=== PATIENT | female | born 1990 | race Two or more races ===

== ENCOUNTER 2025-06-04 10:21 | Outpatient (CLI) | payer MEDICAID ==
[~2025-06-04 10:21] MED LIST: PREN-96 PO
[2025-06-04 11:06] LABS: Hematocrit 33.3 % (36.0-46.0); Hemoglobin 11.1 g/dL (12.2-16.2); Mean Corpuscular Hemoglobin 29.2 pg (28.0-32.0); Mean Corpuscular Volume 87.4 fL (80.0-100.0); Nucleated Red Blood Cells % 0.0 %
[2025-06-04 11:35] LABS: Alanine Aminotransferase 27 U/L (7-40); Albumin 3.8 g/dL (3.2-4.8); Anion Gap 11 (5-15); BUN/Creatinine Ratio 12.5 (10.0-20.0); Calcium 8.7 mg/dL (8.7-10.4); Carbon Dioxide 23 mmol/L (20-31); Chloride 104 mmol/L (98-107); Potassium 3.5 mmol/L (3.5-5.1); Sodium 138 mmol/L (136-145); Thyroid Stimulating Hormone 0.96 uIU/mL (0.55-4.78); Total Protein 6.8 g/dL (5.7-8.2)
[2025-06-04 11:37] LABS: Blood Urea Nitrogen 6 mg/dL (9-23); Glucose 151 mg/dL (74-106)
[2025-06-04 11:38] LABS: Alkaline Phosphatase 45 U/L (46-116); Bilirubin, Total 0.3 mg/dL (0.2-1.0)
[2025-06-04 11:45] LABS: Beta HCG, Quantitative 6833.1 mIU/mL (1.5-4.2)
[2025-06-04 12:14] LABS: Amphetamine Screen, Urine Neg (NEGATIVE); Barbiturate Scree,Urine Neg (NEGATIVE); Benzodiazephine Screen, Urine Neg (NEGATIVE); Cannabinoid Screen, Urine Neg (NEGATIVE); Cocaine Screen, Urine Neg (NEGATIVE); Opiate Scree,Urine Neg (NEGATIVE); Phencyclidine Screen, Urine Neg (NEGATIVE)
[2025-06-05 15:07] LABS: Chlamydia Trachomatis, NAA Negative (Negative); Neisseria gonorrhoeae, NAA Negative (Negative)
== END 2025-06-04 17:00 | disposition home or self-care (01) ==
LOC: LAB 10:21
PROVIDERS: ATTEND Obstetrics & Gynecology
DX: O26.899 Other specified pregnancy related conditions, unspecified trimester (principal); E78.2 Mixed hyperlipidemia; N93.0 Postcoital and contact bleeding; Z11.2 Encounter for screening for other bacterial diseases; Z11.3 Encounter for screening for infections with a predominantly sexual mode of transmission; Z3A.00 Weeks of gestation of pregnancy not specified
CPT/HCPCS: 36415; 80053; 80307; 83036; 84439; 84443; 84702; 85025; 86703; 86762; 86780; 86787; 86850; 86900; 86901; 87340; 87902

== ENCOUNTER 2025-06-26 20:40 | Observation (INO) | payer MEDICAID ==
[~2025-06-26] VITALS: Ht 154.9 cm; Wt 99.8 kg
--- NOTE | 2025-06-26 22:37 | DVH ---
OB ULTRASOUND <14 WEEKS: HISTORY: Decreased movement TECHNIQUE: Multiple real-time grayscale sonographic images of the pelvis with duplex Doppler color f low, spectral and M-mode analysis. TRANSDUCERS: C1-6 COMPARISON: None FINDINGS: Single live intrauterine with a heart rate of 145 beats per minute. Good moveme nt is appreciated. Dating was not performed. Breech presentation. Anterior placenta without previa or abruption. IMPRESSION: 1. Single live intrauterine with a heart rate of 145 beats per minute. Good mov ement is appreciated. 2. Breech presentation.
--- NOTE | 2025-06-26 23:20 | DVHDS2 ---
Physician Discharge Progress N Final Diagnosis: IUP at 28w Reactive NST Operations or Procedures: Operations or Procedures Ms. Page, a 34yo G3, 1999 with EDC of 09/13/2025, EGA 28w 5d presents to place, reports she has not felt baby move x >2hours. She reports no cramping or contraction,LOF, VB, PETERSON, vision changes or epigastric pain. O: A&O x3 Appears uncomfortable No CVA tenderness Abdomen palpate soft A: IUP at 28w d Decreased FM P: EFM - NST Limited OB US Re-assessment @ 22:20 FHR baseline 135bpm mod variability, acceleration present, no deceleration Tocometer: no UCs noted, none palpated Pt reports she has been feeling FM since arrival on unit US report Anterior placenta without previa or abruption. IMPRESSION: 1. Single live intrauterine with a heart rate of 145 beats per minute. Good movement is appreciated. 2. Breech presentation. Per patient fetus was cephalic yesterday during her visit Patient now reports she is feeling FM A: IUP at 28w 5d Reactive NST P: Discharge home Keep appointment with OB provider as scheduled in 2 weeks; seek care sooner if needed Educated on the need for adequate hydration - advised to increased water intake 3rd trimester emergency S&S FMC, labor & pre-eclampsia precautions reviewed with pt; advised to seek health care if any occurs Other Interventions Other Interventions Oral Hydration Condition on Discharge: Stable Disposition: Home Discharge Instructions: Diet: Regular Diet comment: Routine regular diet rich in fiber, protein, iron and vitamin C with adequate fluid intake. Activity: No Restrictions, As Tolerated Activity comment: Unrestricted. As tolerated. Balance activities with rest periods No heavy lifting, pushing or straining. Follow Up/Referral: Keep scheduled appointment Medications: None Follow Up Care: Discharge Statement: 3rd trimester emergency S&S FMC, PTL & pre-eclampsia precautions reviewed with pt; advised to seek health care if any symptom including but not limited to any of the above. "Patient was advised to return to the ER or call 911 if any headaches, dizziness, shortness of breath, chest pain, abdominal pain, bleeding, fevers, or worsening of medical condition. Patient was counseled about treatment plan, medications, possible side effects, patientverbalized understanding. All questions were answered to the best of my ability. This discharge took greater then 30 minutes in planning, reviewing documentation, counseling the patient, and discussing with other team members." Visit Coding OBGYN Date of Service: Jun 26, 2025 Billing Provider: MICHAEL NICHOLSON CNM CALL CENTER DISPATCHER Common Visit Codes: 37926-MXF/OBS SAME DATE (HIGH) CALL CENTER DISPATCHER Procedure Codes: 99404-07- NON-STRESS TEST MICHAEL NICHOLSON CNM Jun 26, 2025 23:20
== END 2025-06-26 22:34 | disposition home or self-care (01) ==
LOC: LDRP 20:40
PROVIDERS: ADMIT Obstetrics & Gynecology; ATTEND Obstetrics & Gynecology
DX: O36.8130 Decreased fetal movements, third trimester, not applicable or unspecified (principal); O32.1XX0 Maternal care for breech presentation, not applicable or unspecified; Z3A.28 28 weeks gestation of pregnancy; Z98.890 Other specified postprocedural states
CPT/HCPCS: 59025; 76815; 81002; 94760; G0378

== ENCOUNTER 2025-07-06 02:57 | Observation (INO) | payer MEDICAID ==
[~2025-07-06] VITALS: Ht 154.9 cm; Wt 102.1 kg
[2025-07-06 05:02] LABS: Fern Testing Negative
[2025-07-06 05:05] LABS: Vaginal Trichomonas Not Present
[2025-07-06 05:06] LABS: Vaginal Bacteria Moderate; Vaginal Clue Cells None Seen; Vaginal Epithelial Cells Rare
--- NOTE | 2025-07-06 05:07 | DVH ---
INDICATION: 30 WEEKS POSSIBLE SROM TECHNIQUE: Multiple real-time grayscale transabdominal sonographic images along with color and duplex Doppler of the uterus and ovaries were obtained. COMPARISON: US OBSTERICAL LIMITED on DOS: 06/26/25, CT ABD/PEL W - IV on DOS: 03/03/23 FINDINGS: Right transverse presentation. Anterior low-lying placenta. No evidence of previa or abruption. heart rate 118 beats per minute. Current MVP is 7.0 cm compared with previous MVP of 2.8 cm on 06/26/2025. Small volume fluid within the cervix. IMPRESSION: 1. Single live intrauterine with positive heart tones and estimated gestational age o f 30 weeks and 2 days. 2. Cervical fluid. 3. No definite evidence of placental abruption or previa.
--- NOTE | 2025-07-06 06:37 | DVHDS2 ---
Physician Discharge Progress N Final Diagnosis: Stable condition Problems List: (1) Multigravida in third trimester (2) 30 weeks gestation of (3) Shellfish allergy (4) Low lying placenta, antepartum Commentary: Commentary Subjective 34 y/o 30w1d EDC 09/13/2025 Present to Triage . Reports of a large gush of fluid around 0200 this morning She reports normal movements, Objective A&O x3, VSS Tracing Category one With no contractions noted Assessment 34 y/o ( 2,1,0,3) Rule out SROM Plan Obsterical Ultrasound EFM UA C&S P.O hydration Abdominal US Ultrasound report 30 weeks gestation Right Transverse presentation Anterior LOW LYING PLACENTA No evident of previa or abruption Small volume fluid within the cervix FHR 118 MVP 7.0 CM Cervical Fluid noted Plan Called to Dr Dias and reported of the findings Order to D/C to home and have patient return next day for NST/BPP Discharge home Advised to increase water intake. Follow up with OB care Provider the soonest Keep all scheduled appointments; seek care sooner if needed Condition on Discharge: Stable Disposition: Home SNF Discharge Will this Physician continue t: No Discharge Instructions: Diet: Regular Activity: Light activity Follow Up/Referral: RETURN TO BIRTHPLACE TOMORROW MORNING ON 07/07/25. Medications: PNV Discharge Care Plan Problem Pain, Knowledge deficit, Risk for injury/Safety, Increase in fluid intake Goals Pain relieved, Pain controlled, Reduction of pain Instructions Notify MD of any issues Visit Coding OBGYN Date of Service: Jul 06, 2025 Billing Provider: LINDA TAY CNM POLYSOMNOGRAPHIC TECHNICIAN Common Visit Codes: [id number] INP/OBS CARE (MOD) LINDA TAY CNMOct 2024 06:37
== END 2025-07-06 06:30 | disposition home or self-care (01) ==
LOC: LDRP 02:57
PROVIDERS: ADMIT Obstetrics & Gynecology; ATTEND Obstetrics & Gynecology
DX: O44.43 Low lying placenta NOS or without hemorrhage, third trimester (principal); O09.523 Supervision of elderly multigravida, third trimester; Z3A.30 30 weeks gestation of pregnancy; Z98.890 Other specified postprocedural states
CPT/HCPCS: 59025; 76815; 84112; 87210; 94760; G0378; Q0114

== ENCOUNTER 2025-07-07 10:42 | Observation (INO) | payer MEDICAID ==
--- NOTE | 2025-07-07 11:58 | DVH ---
INDICATION: EMELYN and CX length check TECHNIQUE: Multiple real-time grayscale transabdominal sonographic images along with color and duplex Doppler of the uterus and ovaries were obtained. COMPARISON: US OBSTERICAL LIMITED on DOS: 07/06/25, US OBSTERICAL LIMITED on DOS: 06/26/25 FINDINGS: Placenta anterior heart rate 143 beats per minute Cervix measures 4.8 cm and appears closed EMELYN: 16.2 cm; MVP: 5.16 cm MVP: 07-06-2025; 6.9 cm MVP: 06/26/2025: 2.8 IMPRESSION: 1 MVP: 5.16. 2. FHR: 143 bpm 3. CX: 4.8 cm
--- NOTE | 2025-07-08 06:17 | DVHDS2 ---
Discharge Summary Date of Admission Jul 07, 2025 at 10:42 Date of Discharge: Jul 07, 2025 Admitting Diagnosis Thirty weeks for EMELYN and cervical length ultrasound/NST Wounds: None Labs/Diagnostic Data: NST ultrasound performed we both reassuring Brief Hx & Hospital Course: NST BPP performed both reassuring Consults/Reason for consult None Operations or Procedures NST BPP performed reassured Condition at Discharge: Good Final Diagnosis/Problems List 30 weeks reassuring heart tones an ultrasound Discharge Disposition: Home Discharge Instruct/Medications Diet: Regular Activity: No Restrictions, As Tolerated Follow Up/Referral: Follow-up as scheduled for routine BPP cervical length check NST kick counseling precautions SROM precautions Medications: None Scheduled Vit W/ Ferrous Fumara ( One Daily), 1 TAB PO DAILY, (Reported) Discharge Statement: "Patient was advised to return to the ER or call 911 if any headaches, dizziness , shortness of breath, chest pain, abdominal pain, bleeding, fevers, or worsening of medical condition. Patient was counseled about treatment plan, medications, possible side effects, patientverbalized understanding. All questions were answered to the best of my ability. This discharge took greater then 30 minutes in planning, reviewing documentation, counseling the patient, and discussing with other team members." ASSESSMENT ASSESSMENT Assessment Visit Coding OBGYN Date of Service: Jul 07, 2025 Billing Provider: RACQUEL SKINNER DO ACCOUNT SERVICES SPECIALIST Common Visit Codes: 28183-LSW/OBS SAME DATE (LOW), 65920-QUA/OBS SAME DATE (MOD), 44542-URP/OBS SAME DATE (HIGH) ACCOUNT SERVICES SPECIALIST Procedure Codes: 38737-ZBU.SURG:W/LYSIS OF ADHESIONS, 45963-72- NON-STRESS TEST RACQUEL SKINNER DO Jul 08, 2025 06:17
== END 2025-07-07 11:30 | disposition home or self-care (01) ==
LOC: LDRP 10:42
PROVIDERS: ADMIT Obstetrics & Gynecology; ATTEND Obstetrics & Gynecology
DX: O42.913 Preterm premature rupture of membranes, unspecified as to length of time between rupture and onset of labor, third trimester (principal); Z3A.30 30 weeks gestation of pregnancy; Z98.890 Other specified postprocedural states; Z79.899 Other long term (current) drug therapy
CPT/HCPCS: 59025; 76815; 81002; 94760; G0378

== ENCOUNTER → 2025-07-12 | Outpatient (CLI) | payer MEDICAID ==
[2025-07-12 10:12] LABS: Hematocrit 32.2 % (36.0-46.0); Hemoglobin 10.8 g/dL (12.2-16.2); Mean Corpuscular Hemoglobin 29.3 pg (28.0-32.0); Mean Corpuscular Volume 87.8 fL (80.0-100.0); Nucleated Red Blood Cells % 0.1 %
== END | disposition home or self-care (01) ==
LOC: LAB 09:37
PROVIDERS: ATTEND Obstetrics & Gynecology
DX: Z34.83 Encounter for supervision of other normal pregnancy, third trimester (principal); Z3A.00 Weeks of gestation of pregnancy not specified
CPT/HCPCS: 36415; 82951; 83036; 85025

== ENCOUNTER 2025-08-07 10:54 | Observation (INO) | payer MEDICAID ==
--- NOTE | 2025-08-07 12:29 | DVH ---
BIOPHYSICAL PROFILE HISTORY: PTL TECHNIQUE: Multiple transabdominal real-time grayscale sonographic images through the gravid uterus of the fetus with duplex Doppler color flow and M-mode spectral analysis FINDINGS: BIOPHYSICAL PROFILE: breathing score: 2 movement score: 2 tone score: 2 Quantitative EMELYN score: 2 (EMELYN: 18.81 cm MVP: 6.7 cm.) Total score: 8/8 The cervix 3.7 cm Single live fetus in transverse head on maternal left presentation. heart rate 145 beats per minute. Anterior Grade 2 placenta without previa or abruption. Anechoic structure with debris seen on the inferior tip of the placenta measuring 5.6 x 2.3 x 5.7 cm. Single live fetus at 34 weeks 6 days Biophysical profile score 8/8 corresponding to an NATHAN of 09/12/2025. IMPRESSION: 1. Biophysical profile score: 8/8 2. Nuchal cord. 3. Placenta inferior tip is 5.6
--- NOTE | 2025-08-07 15:28 | DVHDS2 ---
Physician Discharge Progress N Final Diagnosis: ptl 34 -no evidence of ptl Operations or Procedures: Operations or Procedures nst reactive reviewed,sono Condition on Discharge: Good Disposition: Home Discharge Instructions: Diet: Regular Activity: No Restrictions, As Tolerated Medications: na Follow Up Care: Specialist: 1w Discharge Statement: "Patient was advised to return to the ER or call 911 if any headaches, dizziness, shortness of breath, chest pain, abdominal pain, bleeding, fevers, or worsening of medical condition. Patient was counseled about treatment plan, medications, possible side effects, patientverbalized understanding. All questions were answered to the best of my ability. This discharge took greater then 30 minutes in planning, reviewing documentation, counseling the patient, and discussing with other team members." Visit Coding OBGYN Date of Service: Aug 07, 2025 Billing Provider: PAMELA GRADY DO COIL TESTER Common Visit Codes: 11001-[id number] OBS CARE (HIGH) COIL TESTER Procedure Codes: 30723-67- NON-STRESS TEST PAMELA GRADY DO Aug 07, 2025 15:28
== END 2025-08-07 12:00 | disposition home or self-care (01) ==
LOC: LDRP 10:54 → UNDOADMOB 10:54 → LDRP 11:02
PROVIDERS: ADMIT Obstetrics & Gynecology; ATTEND Obstetrics & Gynecology
DX: O60.03 Preterm labor without delivery, third trimester (principal); Z3A.34 34 weeks gestation of pregnancy; Z98.890 Other specified postprocedural states
CPT/HCPCS: 59025; 76817; 76819; 81002; 94760; G0378

== ENCOUNTER 2025-08-30 19:14 | Inpatient (IN) | payer MEDICAID ==
[~2025-08-30] VITALS: Ht 154.9 cm; Wt 108.9 kg
--- NOTE | 2025-08-30 20:38 | DVH ---
BIOPHYSICAL PROFILE HISTORY: GDMA1 AND MACRO TECHNIQUE: Multiple transabdominal real-time grayscale sonographic images through the gravid uterus of the fetus with duplex Doppler color flow and M-mode spectral analysis FINDINGS: BIOPHYSICAL PROFILE: breathing score: 2 movement score: 2 tone score: 2 Quantitative EMELYN score: 2 (EMELYN: 18 Cm.) maximum vertical pocket: 7.2 cm Total score: 8 The cervix is not well-visualized Single live fetus in cephalic presentation. heart rate 136 beats per minute. Anterior placenta without previa or abruption. The nuchal cord noted on prior imaging is not documented on current images. IMPRESSION: Biophysical profile score: 8/8
[2025-08-30] MEDS ORDERED: BUTORPHANOL TARTRATE 2 MG/1 ML VIAL IV PRN ×2 (21:00)
[2025-08-30] MEDS ORDERED: LIDOCAINE 2%HCL (LOCAL ANESTH.) INJ 20ML MDV IJ PRN (21:00)
[2025-08-30 21:38] LABS: Hematocrit 34.7 % (36.0-46.0); Hemoglobin 11.5 g/dL (12.2-16.2); Mean Corpuscular Hemoglobin 28.5 pg (28.0-32.0); Mean Corpuscular Volume 85.8 fL (80.0-100.0); Nucleated Red Blood Cells % 0.0 %
[2025-08-30 21:53] LABS: Urine Protein, UAD Negative (Negative)
[2025-08-30 21:55] LABS: Alanine Aminotransferase 11 U/L (7-40); Albumin 3.5 g/dL (3.2-4.8); Alkaline Phosphatase 87 U/L (46-116); Anion Gap 10 (5-15); BUN/Creatinine Ratio 15.8 (10.0-20.0); Carbon Dioxide 23 mmol/L (20-31); Potassium 3.7 mmol/L (3.5-5.1); Sodium 140 mmol/L (136-145); Total Protein 6.2 g/dL (5.7-8.2)
[2025-08-30 22:00] LABS: INR 0.92 (0.9-1.15); Partial Thromboplastin Time 27.8 SEC (24.5-34.5); Prothrombin Time 9.8 sec (9.3-11.8)
[2025-08-30 22:04] LABS: Bilirubin, Total 0.3 mg/dL (0.2-1.0); Blood Urea Nitrogen 9 mg/dL (9-23); Calcium 8.6 mg/dL (8.7-10.4); Chloride 107 mmol/L (98-107); Glucose 110 mg/dL (74-106)
[2025-08-30 22:15] LABS: Amphetamine Screen, Urine Neg (NEGATIVE); Barbiturate Scree,Urine Neg (NEGATIVE); Benzodiazephine Screen, Urine Neg (NEGATIVE); Cannabinoid Screen, Urine Neg (NEGATIVE); Cocaine Screen, Urine Neg (NEGATIVE); Opiate Scree,Urine Neg (NEGATIVE); Phencyclidine Screen, Urine Neg (NEGATIVE)
[2025-08-30] MEDS: LACTATED RINGER'S 1,000 ML IV SCH (23:27)
[2025-08-30] MEDS: PHISODERM TOP SOLN 240ML BTL TOP PRN (23:27)
[2025-08-30] MEDS: WITCH HAZEL-GLYCERIN PAD TOP PRN (23:27)
[2025-08-30] MEDS: DERMOPLAST 60ML BOTTLE TOP PRN (23:27)
[2025-08-30] MEDS: PENICILLIN G POT 5MIL/D5 50ML 50 ML IV ONE (23:28)
[2025-08-31] MEDS ORDERED: PENICILLIN G POTASSIUM 2,500,000 UNITS in D5W 5% 50 ML IV SCH (01:00)
[2025-08-31 03:00] VITALS: BP 109/58; PULSE 76; RESP 18; TEMP 98.1; O2SAT 97
[2025-08-31] MEDS ORDERED: ONDANSETRON HCL 4 MG/2 ML VIAL IV PRN (03:00)
[2025-08-31] MEDS: PENICILLIN G POTASSIUM 2,500,000 UNITS in D5W 5% 50 ML IV SCH (03:26)
--- NOTE | 2025-08-31 06:43 | DVHHP2 ---
OB CC & HPI Date Date of Admission: Aug 31, 2025 Patient Identification: : 4 Para: 3 EDC: Sep 13, 2025 EGA: 38 2/7 Chief Complaints: Reason for admission: induction of labor (Per Dr Dias her primary HSE SPECIALIST I'm covering for weekend ; Per Arun / Perinatology sent to [facility] for induction of labor ; she is Morbidily obese, poor GDMA1 compliance, and Impending Macrosomia) History of Present Complaints She has made all appt's Past Medical History Cardiac: No pertinent Hx Pulmonary: No pertinent Hx Central Nervous System: No pertinent Hx GI: No pertinent Hx Hemotology/Oncology: No pertinent Hx Hepatobiliary: No pertinent Hx Psychiatric: No pertinent Hx Musculoskeletal: No pertinent Hx Rheumotologic: No pertinent Hx Infectious Disease: No peritnent Hx ENT: No pertinent Hx Renal/: No pertinent Hx Endocrine: No pertinent Hx Dermatology: No pertinent Hx Past Surgical History: No pertinent Hx OB History OB History Care: Good Care Ultrasounds: Normal mid trimester US Obstetrical Complications: None Medical Complications: Other (GDM A1, impending Macrosomia, Morbid maternal condition) Allergies: Coded Allergies: Shellfish Allergy (Verified Allergy, Unknown, RASH, 08/02/14) Shrimp Flavor (Verified Allergy, Unknown, 08/02/14) Home Meds Reported Medications Vit W/ Ferrous Fumara ( One Daily) Daily Tab, 1 TAB PO DAILY, #90 TAB 3 Refills 08/07/14 Current Medications Current Medications Medications (Trade) Dose Ordered Sig/Tirso Route PRN Reason Start Time Stop Time Status Last Admin Lactated Ringer's 1,000 ml @ 125 mls/hr Q8H IV 08/30/25 21:00 08/31/25 02:06 Penicillin G Potassium 1330777 units/Dextrose 50 ml @ 100 mls/hr Q4H IV 08/31/25 01:00 08/31/25 02:54 DC Ryan Lucero (Tucks) 1 pad PRN PRN TOP PERINEAL AREA DISCOMFORT 08/30/25 21:00 08/30/25 23:27 Sodium Lauryl Sulfate (Phisoderm) 240 ml PRN PRN TOP PERINEAL AREA DISCOMFORT 08/30/25 21:00 08/30/25 23:27 Benzocaine (Dermoplast) 1 applic PRN PRN TOP PERINEAL AREA DISCOMFORT 08/30/25 21:00 08/30/25 23:27 Butorphanol Tartrate (Stadol Injection) 1 mg Q4HPRN PRN IV MODERATE PAIN (4-6 PAIN SCALE) 08/30/25 21:00 Butorphanol Tartrate (Stadol Injection) 2 mg Q4HPRN PRN IV SEVERE PAIN (7-10 PAIN SCALE) 08/30/25 21:00 Misoprostol (Cytotec) 50 mcg Q4HPRN PRN PO CERVICAL RIPENING 08/30/25 21:00 08/31/25 03:26 Lidocaine HCl (Xylocaine) 20 ml ONCE PRN IJ PERINEAL AREA DISCOMFORT 08/30/25 21:00 Penicillin G Potassium 7703782 units/Dextrose 50 ml @ 100 mls/hr Q4H IV 08/31/25 03:30 08/31/25 03:26 Ondansetron HCl (Zofran) 4 mg Q6HPRN PRN IV NAUSEA / VOMITING 08/31/25 03:00 Family & Social History Family/Social History Blood Type: O+ Rubella: immune RPR/VDRL: Negative GBS Status: Unknown HBsAG: Negative Review of Systems Constitutional: No symptom reported Ears, Nose, & Throat: No symptom reported Eyes: No symptom reported Pulmonary/Respiratory: No symptom reported Cardiovascular: No symptom reported Gastrointestinal: No symptom reported Genitourinary: No symptom reported Musculoskeletal: No symptom reported Skin: No symptom reported Psychiatric: No symptom reported Endocrine: No symptom reported Hemotologic/Lymphatic: No symptom reported OB Admission Exam Physical Exam Vitals: Vital Signs Date Time Temp Pulse Resp B/P (MAP) Pulse Ox O2 Delivery O2 Flow Rate FiO2 08/31/25 03:00 98.1 76 18 109/58 (10) 97 98.1 HEENT: TMs Normal, Fontanelles Normal, Nasal Mucosa Normal, Eyes non-injected, Oropharynx Normal, PERRLA, Moist Membranes, EOMI Heart: Rhythm Normal Lungs: Clear Abdomen: Non tender Extremities: Normal Reflexes: Normal Cervical Dilatation: Fingertip Effacement: 0% Membranes: Intact Heart Rate: 130's Accelerations: Accelerations Present Decelerations: No Decelerations Short Term Variability: Present Usp Variability: Average (6-25) Contractions on Admission: None OB Plan Plan Admitting Diagnosis: INDUCTION OF LABOR FOR GDMA1, IMPENDING MACROSOMNIA, NON-COMPLIANT MATERNAL MORBID OBESITY Plan: Expectant Management Induction Methd: Misoprostol protocol Visit Coding OBGYN Date of Service: Aug 31, 2025 Billing Provider: RACQUEL SKINNER DO HSE SPECIALIST Common Visit Codes: [id number] INP/OBS CARE(HIGH), 46529-HPF/OBS SAME DATE (LOW), 20747-IQU/OBS SAME DATE (MOD) HSE SPECIALIST Procedure Codes: 25631-33- NON-STRESS TEST RACQUEL SKINNER DO Aug 31, 2025 06:43
--- NOTE | 2025-08-31 06:46 | LDN2 ---
Labor and Delivery Note Date 08/31/25 Age 34 4 Para 3 AB 0 EDC 09/13/2025 EGA 38+ WKS Diagnosis GDM A2, MORBID OBESITY, IMPENDING MACROSOMIA Vaginal Delivery: VTX Vacuum Assisted: No Placenta: Spontaneous Sex: Female Weight 7 lbs 15 oz Apgars 8/9 Nuchal Cord Transected: No Amniotic Fluid: Clear Anesthesia Epidural Episiotomy: No Extension: No Repaired with Applicable EBL 350 cc Labs Laboratory Tests 08/30/25 21:07: Rubella Antibody Positive 06/04/25 10:38: Hepatitis B Surface Antigen Negative, HIV (1&2) Antibody Negative Blood Bank 08/30/25 21:07: Blood Type O POSITIVE Complications NONE Conditions Stable guarded Surgery Technician None present Visit Coding OBGYN Date of Service: Sep 01, 2025 Billing Provider: RACQUEL SKINNER DO SINGLE PASS SOIL STABILIZER OPERATOR Common Visit Codes: 02504-[id number] INP/OBS CARE(HIGH), 73627-QBQ/OBS SAME DATE (LOW), 48906-XPI/OBS SAME DATE (MOD) SINGLE PASS SOIL STABILIZER OPERATOR Procedure Codes: 41410-RYQOB OB CARE,VAG DELIVERY RACQUEL SKINNER DO Aug 31, 2025 06:46
[2025-08-31] MEDS ORDERED: NALOXONE HCL 0.4 MG/ML VIAL IV ONE (19:15)
[2025-08-31] MEDS: ROPIVACAINE HCL 100 ML ONE (19:25)
[2025-08-31] MEDS: LACTATED RINGER'S 1,000 ML IV ONE (22:21)
[2025-09-01] MEDS: FAMOTIDINE (10MG/ML) 2ML VL IV PRN (00:13)
[2025-09-01] MEDS: LACT. RINGERS/OXYTOCIN 20UNITS 500 ML IV ONE ×2 (04:00)
[2025-09-01] MEDS: METHYLERGONOVINE MALEATE 0.2 MG/ML AMP IM ONE (04:26)
[2025-09-01] MEDS: IBUPROFEN 800 MG TAB PO SCH (06:58)
[2025-09-01 07:00] VITALS: BP 112/57; PULSE 76; RESP 17; TEMP 99.4; O2SAT 96
[2025-09-01 11:12] VITALS: BP 121/57; PULSE 95; RESP 18; TEMP 98.5; O2SAT 95
[2025-09-01 15:15] VITALS: BP 97/54; PULSE 66; RESP 16; TEMP 97.7; O2SAT 97
[2025-09-01] MEDS: ACETAMINOPHEN 325 MG TAB PO PRN (17:32)
[2025-09-01 19:04] VITALS: RESP 16
[2025-09-01 19:14] VITALS: BP 104/55; PULSE 81; RESP 16; TEMP 97.8; O2SAT 97
[2025-09-01] MEDS ORDERED: IBUPROFEN 800 MG TAB PO SCH (21:00)
[2025-09-01] MEDS: IBUPROFEN 800 MG TAB PO PRN (21:40)
[2025-09-01] MEDS: DOCUSATE SOD 100 MG CAP PO SCH (21:40)
[2025-09-01 22:32] VITALS: BP 97/51; PULSE 63; RESP 20; TEMP 97.7; O2SAT 96
--- NOTE | 2025-09-02 01:27 | DVHPN2 ---
Chief Complaints Patient reports: No new complaints, Feels better Nursing reports: No new complaints, No abdominal pain, No chest pain, No dizziness, No cough Objective Vitals Vital Signs Date Time Temp Pulse Resp B/P (MAP) Pulse Ox O2 Delivery O2 Flow Rate FiO2 09/01/25 22:32 97.7 63 20 97/51 (66) 96 97.7 09/01/25 19:04 Room Air Medications Current Medications Medications (Trade) Dose Ordered Sig/Tirso Route PRN Reason Start Time Stop Time Status Last Admin Acetaminophen (Tylenol Tablet) 650 mg Q4HP PRN PO MILD PAIN (1-3 PAIN SCALE) 09/01/25 05:45 09/01/25 17:32 Docusate Sodium (Colace Capsule) 200 mg HS PO 09/01/25 22:00 09/01/25 21:40 Ibuprofen (Motrin Tablet) 800 mg Q6HP PRN PO PAIN SCALE 1 THRU 6 09/01/25 21:30 09/01/25 21:40 General: Normal Head/Eyes: Normal Neck: Normal Lungs: Normal Cardiovascular: Normal Heart Murmur: no murmur Abdominal: Normal Musculoskeletal: Normal Extremities: Normal Skin: Normal Neurological: Normal Studies Laboratory Tests 08/30/25 21:07 Test 08/30/25 21:07 Range/Units Serum Glucose 110 H 74-106 mg/dL Ass/Plan Assessment Day 2 stable improved advanced care Plan Advanced care per RACQUEL SKINNER DO Sep 02, 2025 01:27
--- NOTE | 2025-09-02 01:29 | DVHPN2 ---
Chief Complaints Patient reports: No new complaints, Feels better Nursing reports: No new complaints, No abdominal pain, No chest pain, No dizziness, No cough Objective Vitals Vital Signs Date Time Temp Pulse Resp B/P (MAP) Pulse Ox O2 Delivery O2 Flow Rate FiO2 09/01/25 22:32 97.7 63 20 97/51 (66) 96 97.7 09/01/25 19:04 Room Air Medications Current Medications Medications (Trade) Dose Ordered Sig/Tirso Route PRN Reason Start Time Stop Time Status Last Admin Acetaminophen (Tylenol Tablet) 650 mg Q4HP PRN PO MILD PAIN (1-3 PAIN SCALE) 09/01/25 05:45 09/01/25 17:32 Docusate Sodium (Colace Capsule) 200 mg HS PO 09/01/25 22:00 09/01/25 21:40 Ibuprofen (Motrin Tablet) 800 mg Q6HP PRN PO PAIN SCALE 1 THRU 6 09/01/25 21:30 09/01/25 21:40 General: Normal Head/Eyes: Normal Neck: Normal Lungs: Normal Cardiovascular: Normal Heart Murmur: no murmur Abdominal: Normal Musculoskeletal: Normal Extremities: Normal Skin: Normal Neurological: Normal Studies Laboratory Tests 08/30/25 21:07 Test 08/30/25 21:07 Range/Units Serum Glucose 110 H 74-106 mg/dL Ass/Plan Assessment Day 2 stable improved advanced care Plan Patient stable improved advanced care. RACQUEL SKINNER DO Sep 02, 2025 01:29
[2025-09-02 02:53] VITALS: BP 103/66; PULSE 66; RESP 18; TEMP 97.7; O2SAT 97
[2025-09-02 07:22] VITALS: BP 105/67; PULSE 71; RESP 18; TEMP 97.9; O2SAT 97
--- NOTE | 2025-09-02 11:11 | DVHDS2 ---
Discharge Summary Date of Admission Aug 30, 2025 at 20:26 Date of Discharge: Sep 02, 2025 Admitting Diagnosis See GDM A1 labor Wounds: Stable improved Labs/Diagnostic Data: Laboratory Results Test 09/01/25 01:56 08/30/25 21:07 08/30/25 20:45 POC Glucose 90 mg/dl (70-106) White Blood Count 7.8 10^3/uL (4.4-10.8) Red Blood Count 4.04 10^6/uL (4.0-5.20) Hemoglobin 11.5 g/dL (12.2-16.2) Hematocrit 34.7 % (36.0-46.0) Mean Corpuscular Volume 85.8 fL (80.0-100.0) Mean Corpuscular Hemoglobin 28.5 pg (28.0-32.0) Mean Corpuscular Hemoglobin Concent 33.2 g/dL (32.0-36.0) Red Cell Distribution Width 14.7 % (11.8-14.3) Platelet Count 229 10^3/uL (140-450) Mean Platelet Volume 7.9 fL (6.9-10.8) Neutrophils (%) (Auto) 69.7 % (37.0-80.0) Lymphocytes (%) (Auto) 20.8 % (10.0-50.0) Monocytes (%) (Auto) 7.4 % (0.0-12.0) Eosinophils (%) (Auto) 1.9 % (0.0-7.0) Basophils (%) (Auto) 0.2 % (0.0-2.0) Neutrophils # (Auto) 5.5 10 ^3/uL (1.6-8.6) Lymphocytes # (Auto) 1.6 10 ^3/uL (0.4-5.4) Monocytes # (Auto) 0.6 10 ^3/uL (0-1.3) Eosinophils # (Auto) 0.2 10 ^3/uL (0-0.8) Basophils # (Auto) 0 10 ^3/uL (0-0.2) Nucleated Red Blood Cells 0.0 % Prothrombin Time 9.8 sec (9.3-11.8) Prothrombin Time INR 0.92 (0.9-1.15) Activated Partial Thromboplast Time 27.8 SEC (24.5-34.5) Sodium Level 140 mmol/L (136-145) Potassium Level 3.7 mmol/L (3.5-5.1) Chloride Level 107 mmol/L (98-107) Carbon Dioxide Level 23 mmol/L (20-31) Anion Gap 10 (5-15) Blood Urea Nitrogen 9 mg/dL (9-23) Creatinine 0.57 mg/dL (0.550-1.02) Glomerular Filtration Rate Calc 124 mL/min (>90) BUN/Creatinine Ratio 15.8 (10.0-20.0) Serum Glucose 110 mg/dL (74-106) Calcium Level 8.6 mg/dL (8.7-10.4) Total Bilirubin 0.3 mg/dL (0.2-1.0) Aspartate Amino Transferase (AST) 12 U/L (13-40) Alanine Aminotransferase (ALT) 11 U/L (7-40) Alkaline Phosphatase 87 U/L (46-116) Total Protein 6.2 g/dL (5.7-8.2) Albumin 3.5 g/dL (3.2-4.8) Treponema pallidum Antibody Non-reactive (Negative) Hepatitis C Antibody Negative (Negative) Rubella Antibody Positive Urine Color Light-yellow (Yellow) Urine Clarity Clear (Clear) Urine pH 5.5 (5.0-9.0) Urine Specific [place] 1.015 (1.001-1.035) Urine Protein Negative (Negative) Urine Ketones Negative (Negative) Urine Blood Negative /uL (Negative) Urine Nitrite Negative (Negative) Urine Bilirubin Negative (Negative) Urine Urobilinogen Normal mg/dL (Negative) Urine Leukocyte Esterase 1+ /uL (Negative) Urine RBC 3 /hpf (0 - 4) Urine Microscopic WBC 5 /HPF (0-5) Urine Squamous Epithelial Cells Few /hpf (<5) Urine Bacteria None seen /hpf (None Seen) Urine Glucose 2+ mg/dL (Normal) Urine Opiates Screen Neg (NEGATIVE) Urine Fentanyl Screen Neg (NEGATIVE) Urine Barbiturates Screen Neg (NEGATIVE) Urine Phencyclidine Screen Neg (NEGATIVE) Urine Amphetamines Screen Neg (NEGATIVE) Urine Benzodiazepines Screen Neg (NEGATIVE) Urine Cocaine Screen Neg (NEGATIVE) Urine Cannabinoids Screen Neg (NEGATIVE) Other Laboratory Tests 08/30/25 21:07 Brief Hx & Hospital Course: Patient had an without complications stable for discharge home Consults/Reason for consult None Operations or Procedures None Condition at Discharge: Good Final Diagnosis/Problems List Status post GDM a 1 Discharge Disposition: Home Discharge Instruct/Medications Diet: Consistent carbohydrate Activity: Light activity Activity comment: Pelvic rest 6 weeks Follow Up/Referral: Primary Ob 2 weeks or PRN Medications: Resume home meds Scheduled Vit W/ Ferrous Fumara ( One Daily), 1 TAB PO DAILY, (Reported) Discharge Statement: "Patient was advised to return to the ER or call 911 if any headaches, dizziness, shortness of breath, chest pain, abdominal pain, bleeding, fevers, or worsening of medical condition. Patient was counseled about treatment plan, medications, possible side effects, patientverbalized understanding. All questions were answered to the best of my ability. This discharge took greater then 30 minutes in planning, reviewing documentation, counseling the patient, and discussing with other team members." ASSESSMENT ASSESSMENT Assessment Visit Coding OBGYN Date of Service: Sep 02, 2025 Billing Provider: RACQUEL SKINNER DO DRY TRANSFER WORKER Common Visit Codes: [id number] INP/OBS CARE(HIGH), 79087-WQC/OBS SAME DATE (LOW), 35350-AUQ/OBS SAME DATE (MOD) DRY TRANSFER WORKER Procedure Codes: 98596-VEZUJ OB CARE,VAG DELIVERY RACQUEL SKINNER DO Sep 02, 2025 11:11
[2025-09-02 11:30] VITALS: BP 114/62; PULSE 68; RESP 16; TEMP 98.4; O2SAT 96
== END 2025-09-02 11:44 | disposition home or self-care (01) | DRG 560 ==
LOC: LDRP 19:14 → OBSVTOIN 20:26
PROVIDERS: ADMIT Obstetrics & Gynecology; ATTEND Obstetrics & Gynecology
PROC: 10E0XZZ Delivery of Products of Conception, External Approach (ICD-10-PCS; principal; 2025-09-01)
PROC: 3E0R3BZ Introduction of Anesthetic Agent into Spinal Canal, Percutaneous Approach (ICD-10-PCS; 2025-09-01)
PROC: 00HU33Z Insertion of Infusion Device into Spinal Canal, Percutaneous Approach (ICD-10-PCS; 2025-09-01)
DX: O24.410 Gestational diabetes mellitus in pregnancy, diet controlled (principal); Z37.0 Single live birth; E66.01 Morbid (severe) obesity due to excess calories; O99.214 Obesity complicating childbirth; Z91.013 Allergy to seafood; Z3A.38 38 weeks gestation of pregnancy
CPT/HCPCS: 36415; 59025; 59409; 62282; 76819; 80053; 80307; 81001; 81002; 82948; 82962; 85025; 85610; 85730; 86762; 86780; 86803; 86850; 86900; 86901; 94760; 94762; 96360; 96361; 96365; 96366; 96372; 96374; G0378; J2540; J2590; J3490; J7060